=== PATIENT | female | born 1975 | race Hispanic/Latino ===

== ENCOUNTER 2017-11-30 01:02 | Emergency (ER) | payer MEDICAID, OTHER ==
[~2017-11-30 01:02] MED LIST: ALBU8.5H8 IH; ATOR10 PO; BUSP5TAB3 PO; FLUTICASONE NASAL; PARO10TA71 PO; TRAM50TA4 PO
[2017-11-30 01:24] LABS: APPEARANCE,URINE Cloudy (CLEAR); BILIRUBIN,URINE Negative (NEGATIVE); COLOR,URINE Dark Yellow (YELLOW); GLUCOSE, URINE (UA) Negative (NEGATIVE); KETONES,URINE 15 mg/dL (NEGATIVE); LEUKOCYTE ESTERASE ,URINE Moderate (NEGATIVE); NITRATE,URINE Positive (NEGATIVE); OCCULT BLOOD,URINE Small (NEGATIVE); PROTEIN,URINE Negative (NEGATIVE)
[2017-11-30 01:30] LABS: HCG,QUAL RESULT NEGATIVE (NEGATIVE)
[2017-11-30 01:33] LABS: AMPHET/METH SCREEN,URINE NEGATIVE (NEGATIVE); BARBITURATE SCREEN, URINE NEGATIVE (NEGATIVE); BENZODIAZEPINES SCREEN,URINE NEGATIVE (NEGATIVE); CANNABINOID SCREEN,URINE NEGATIVE (NEGATIVE); COCAINE SCREEN,URINE NEGATIVE (NEGATIVE); OPIATE SCREEN,URINE NEGATIVE (NEGATIVE); PHENCYCLIDINE SCREEN,URINE NEGATIVE (NEGATIVE)
[2017-11-30 01:40] LABS: BASOPHILS % (AUTO) 0.6 % (0.0-5.0); EOSINOPHILS % (AUTO) 0.3 % (0.0-8.0); HEMATOCRIT 30.6 % (36-48); LYMPHOCYTES % (AUTO) 10.1 % (21.0-51.0); MEAN CORPUSCULAR HEMOGLOBIN 28.5 pg (27.0-33.0); MEAN CORPUSCULAR HGB CONC 34.6 g/dL (32.0-36.0); MEAN CORPUSCULAR VOLUME 82.4 fL (79-99); MONOCYTES % (AUTO) 8.3 % (3.0-13.0); NEUTROPHILS % (AUTO) 80.7 % (40.0-77.0); PLATELET COUNT (AUTO) 380 K/uL (130-400); RED BLOOD CELL COUNT(AUTO) 3.72 MIL/uL (4.00-5.50); RED CELL DISTRIBUTION WIDTH 14.9 % (11.0-15.5)
[2017-11-30 01:55] LABS: CREATININE 0.7 mg/dL (0.5-1.5); POTASSIUM 3.3 mmol/L (3.5-5.1)
[2017-11-30 02:02] LABS: ALBUMIN 2.6 g/dL (3.5-5.0); BILIRUBIN,TOTAL 0.5 mg/dL (0.2-1.0); TOTAL PROTEIN, SERUM 7.7 g/dL (6.0-8.3)
[2017-11-30 02:16] LABS: RBC,URINE None Seen /HPF (0-1)
[2017-11-30 02:17] LABS: BACTERIA,URINE Few /HPF (None Seen)
[2017-11-30] MEDS ORDERED: SODIUM CHLORIDE 0.9% 1000ML 1,000 ML IV ONE (04:28)
[2017-11-30] MEDS ORDERED: CEFTRIAXONE SODIUM 1 GM ONE (04:29)
[2017-11-30] MEDS ORDERED: KETOROLAC TROMETHAMINE 30MG/ML ONE (04:29)
== END 2017-11-30 05:13 | disposition home or self-care (01) ==
LOC: EDH 01:02
DX: N10 Acute pyelonephritis (principal); R51 Headache; F32.9 Major depressive disorder, single episode, unspecified; Z88.5 Allergy status to narcotic agent; Z79.899 Other long term (current) drug therapy
CPT/HCPCS: 36415; 80053; 80305; 81001; 81025; 82150; 83690; 85025; 87088; 87186; 96361; 96374; 96375; 99284; A4218; J0696; J1885; J7030

== ENCOUNTER 2021-09-07 10:18 | Observation (INO) | payer OTHER ==
[~2021-09-07] VITALS: Ht 157.5 cm; Wt 98.9 kg
[2021-09-07] VITALS (12 sets, daily range): BP systolic 132–156; BP diastolic 81–88
[2021-09-07 10:41] LABS: BASOPHILS % (AUTO) 0.6 % (0.0-5.0); MEAN CORPUSCULAR HEMOGLOBIN 26.1 pg (27.0-33.0); MEAN CORPUSCULAR HGB CONC 31.8 g/dL (32.0-36.0); MEAN CORPUSCULAR VOLUME 82.1 fL (79-99); MONOCYTES % (AUTO) 7.2 % (3.0-13.0); NEUTROPHILS % (AUTO) 74.8 % (40.0-77.0); PLATELET COUNT (AUTO) 354 K/uL (130-400); RED BLOOD CELL COUNT(AUTO) 4.14 MIL/uL (4.00-5.50); RED CELL DISTRIBUTION WIDTH 14.9 % (11.0-15.5); WHITE BLOOD COUNT (AUTO) 9.6 K/uL (4.8-10.8)
[2021-09-07 10:45] LABS: APPEARANCE,URINE Clear (CLEAR); BILIRUBIN,URINE Negative (NEGATIVE); COLOR,URINE Yellow (YELLOW); GLUCOSE, URINE (UA) Negative (NEGATIVE); KETONES,URINE Negative (NEGATIVE); LEUKOCYTE ESTERASE ,URINE Trace (NEGATIVE); NITRATE,URINE Negative (NEGATIVE); OCCULT BLOOD,URINE Small (NEGATIVE); PH,URINE 5.5 (5.0-8.0); PROTEIN,URINE Negative (NEGATIVE); UROBILINOGEN,URINE 0.2 mg/dL (0.2-1.0)
[2021-09-07 10:47] LABS: CREATININE 0.9 mg/dL (0.5-1.5); POTASSIUM 4.2 mmol/L (3.5-5.1)
[2021-09-07 10:48] LABS: HCG,QUAL RESULT NEGATIVE (NEGATIVE)
[2021-09-07 10:52] LABS: ALBUMIN 3.6 g/dL (3.5-5.0); BILIRUBIN,TOTAL 0.3 mg/dL (0.2-1.0); TOTAL PROTEIN, SERUM 7.4 g/dL (6.0-8.3)
[2021-09-07 11:05] LABS: BACTERIA,URINE Few /HPF (None Seen)
[2021-09-07] MEDS ORDERED: MEROPENEM 1 GM VIAL ONE (14:23)
[2021-09-07] MEDS ORDERED: LIDOCAINE PF 100MG/5ML (2%) SYRINGE 5ML ONE (14:34)
[2021-09-07] MEDS ORDERED: MIDAZOLAM HCL 1 MG/ML 2ML VIAL ONE (14:35)
[2021-09-07] MEDS ORDERED: ROCURONIUM 10MG/1ML SYR 10 MG/ML ML ONE (14:36)
[2021-09-07] MEDS ORDERED: PROPOFOL 10 MG/ML 20ML VIAL IV ONE (14:36)
[2021-09-07] MEDS ORDERED: FENTANYL CITRATE PF 50 MCG/1 ML 2ML VIAL ONE ×2 (14:37→15:36)
[2021-09-07] MEDS ORDERED: ONDANSETRON 4MG INJ ONE (14:39)
[2021-09-07] MEDS ORDERED: IOHEXOL-350 50ML VIAL IV ONE (14:45)
[2021-09-07] MEDS ORDERED: EPHEDRINE SULFATE 50 MG/ML AMPULE ONE (15:13)
[2021-09-07] MEDS ORDERED: KETOROLAC 15MG/ML VIAL (15MG/ML) IV PRN (19:30)
[2021-09-07] MEDS ORDERED: ONDANSETRON 4MG INJ IVP PRN (19:30)
[2021-09-07] MEDS ORDERED: TRAMADOL HCL 50 MG TABLET PO PRN (19:30)
[2021-09-07] MEDS ORDERED: 1/2NS+20MEQ KCL/1000ML 1,000 ML IV SCH (19:30)
== END 2021-09-07 19:55 | disposition home or self-care (01) ==
LOC: EDH 10:18 → EDHIP 15:50 → 3BH 19:12
PROVIDERS: ADMIT Urology; ATTEND Urology
DX: N13.6 Pyonephrosis (principal); Z20.822 Contact with and (suspected) exposure to COVID-19; B96.20 Unspecified Escherichia coli [E. coli] as the cause of diseases classified elsewhere; I10 Essential (primary) hypertension; J45.909 Unspecified asthma, uncomplicated; E66.01 Morbid (severe) obesity due to excess calories; Z79.899 Other long term (current) drug therapy; Z87.442 Personal history of urinary calculi; Z16.12 Extended spectrum beta lactamase (ESBL) resistance
CPT/HCPCS: 36415; 52356; 74018; 80053; 81001; 81025; 82360; 85025; 87635; C9803; G0378 ×4; G0379; J2001; J2185; J2250; J2405; J2704; J3010 ×2; J3480; J3490; Q9967

== ENCOUNTER → 2023-04-21 | Outpatient (CLI) | payer OTHER | END | disposition home or self-care (01) | LOC: RAH 13:21 | PROVIDERS: ATTEND Internal Medicine | DX: M41.9 Scoliosis, unspecified (principal); R10.12 Left upper quadrant pain; M41.86 Other forms of scoliosis, lumbar region | CPT/HCPCS: 72082; 74176 ==

== ENCOUNTER → 2024-09-30 | Outpatient (CLI) | payer BC ==
--- NOTE | 2024-09-30 11:44 | HMCIMG ---
SHOULDER COMP 2+VWS LT HISTORY: DJD COMPARISON: None TECHNIQUE: 2 images of left shoulder were obtained. FINDINGS: There is no acute displaced fracture or dislocation. Minimal degenerative changes are seen. IMPRESSION: 1. Findings as described above.
--- NOTE | 2024-09-30 11:54 | HMCIMG ---
SHOULDER COMP 2+VWS RT HISTORY: DJD COMPARISON: None TECHNIQUE: Images of right shoulder were obtained. FINDINGS: There is no acute displaced fracture or dislocation. IMPRESSION: 1. Findings as described above.
== END | disposition home or self-care (01) ==
LOC: RAH 09:30
PROVIDERS: ATTEND Internal Medicine
DX: M19.011 Primary osteoarthritis, right shoulder (principal); M19.012 Primary osteoarthritis, left shoulder
CPT/HCPCS: 73030

== ENCOUNTER → 2025-01-19 | Outpatient (CLI) | payer BC ==
--- NOTE | 2025-01-19 15:26 | HMCIMG ---
Exam Type: CT ABD/PEL WO CON RENAL/APPY Clinical Information: HEMORHAGE OF ANUS AND RECTUM Comparison: None Contrast: 100 cc's Isovue 370 IV, no complications or adverse reactions CT Dose Index (CTDI): 31.60 mGy Dose Length Product (DLP): 1740.80 total mGy-cm Findings: No evidence of nephro or ureterolithiasis is found. No hydronephrosis or ureteral dilatation is seen. The lung bases are clear. The stomach is unremarkable. It shows no wall thickening. No gross ulceration is seen. It is not overly distended. There are no surrounding inflammatory changes. No wall lesions are identified to suggest cancer. The spleen is unremarkable. It is not enlarged. The pancreas shows normal anatomy. It is not fatty replaced. It shows no lesions. The pancreatic duct is not dilated. The gallbladder is unremarkable. It shows no cholelithiasis. The gallbladder wall is normal in thickness. There is no pericholecystic fluid. The is no acute or chronic inflammation noted. The adrenal glands are unremarkable. There is no enlargement. No lesions are noted. The liver is unremarkable. It shows no focal masses. The appendix is unremarkable. It shows no evidence of inflammation. No appendicolith is seen. The small bowel is unremarkable. There is no evidence of dilatation to suggest obstruction. No evidence of adynamic ileus is seen. There is no small bowel wall thickening to suggest enteritis. The colon is unremarkable. The urinary bladder is unremarkable. There is no wall thickening to suggest tumor or inflammation. There are no intraluminal calculi. There are no diverticula. There is no evidence of chronic bladder outlet obstruction. There is no evidence of urinary bladder distention to suggest urinary retention. The other pelvic structures are unremarkable. The bony and vascular structures are unremarkable for the patient's age. IMPRESSION: NEGATIVE CT SCAN OF THE ABDOMEN AND PELVIS WITH ORAL AND IV CONTRAST. This study was performed using dose reduction techniques to include automated exposure control and/or adjustment of the mA and/or kV according to patient size.
== END | disposition home or self-care (01) ==
LOC: CANPRECLI → RAH 13:44
PROVIDERS: ATTEND Internal Medicine
DX: K62.5 Hemorrhage of anus and rectum (principal); R10.30 Lower abdominal pain, unspecified
CPT/HCPCS: 74176

== ENCOUNTER → 2025-01-28 | Outpatient (CLI) | payer BC ==
--- NOTE | 2025-01-28 12:14 | HMCIMG ---
LUMBAR SPINE 2-3VWS HISTORY: Lumbar radiculopathy COMPARISON: None FINDINGS: 3 images of lumbar spine were obtained. There is straightening of normal lordotic curvature which may be related to muscle spasm or positioning. No loss of vertebral height is seen. No fracture or dislocation is seen. Degenerative changes are seen. IMPRESSION: 1. No fracture is seen.
--- NOTE | 2025-01-28 12:15 | HMCIMG ---
SACRUM/COCCYX 2+VWS HISTORY: Radiculopathy COMPARISON: None TECHNIQUE: 3 images of sacrum and coccyx were obtained. FINDINGS: There is no acute displaced fracture or dislocation. Degenerative changes are seen. IMPRESSION: 1. Findings as described above.
== END | disposition home or self-care (01) ==
LOC: RAH 11:26
PROVIDERS: ATTEND Internal Medicine
DX: M47.27 Other spondylosis with radiculopathy, lumbosacral region (principal); M53.3 Sacrococcygeal disorders, not elsewhere classified
CPT/HCPCS: 72100; 72220